=== PATIENT | male | born 1970 | race Caucasian/White ===

== ENCOUNTER 2023-11-05 17:17 | Emergency (ER) | payer OTHER ==
[2023-11-05 17:32] VITALS: RESP 16
[2023-11-05] MEDS ORDERED: Sodium Chloride 0.9% 1000 ML 1,000 ML IV STA (17:39)
[2023-11-05] MEDS ORDERED: Zofran 4 MG/2 ML VIAL IV ONE ×2 (17:39→18:41)
[2023-11-05] MEDS ORDERED: Zofran 4 MG/2 ML VIAL ONE ×2 (17:42→18:43)
[2023-11-05] MEDS ORDERED: Sodium Chloride 0.9% 1000 ML 1,000 ML ONE (17:42)
[2023-11-05 17:43] VITALS: TEMP 98.6
--- NOTE | 2023-11-05 17:57 | ERPHSYRPT ---
- History of Present Illness Time Seen by Provider: 11/05/23 17:54 Historian: patient, family Exam Limitations: no limitations Patient Subjective Stated Complaint: VOMITING Triage Nursing Assessment: PATIENT REPORTS TO ER WITH C/O VOMITTING SINCE . PATIENT ABLE TO AMBULATE PER SELF BACK TO ROOM WITH SISTER PRESENT. PATIENT STATES THAT HE IS NOT ABLE TO KEEP ANY FOOD, FLUIDS OR MEDICATIONS DOWN. PATIENT REPORTS THAT HE HAD A HERNIA REPAIRED IN HIS RIGHT GROIN REGION ON TUESDAY THIS WEEK AT [facility]. INCISION INTAKE TO RIGHT GROIN WITH DERMABOND, LARGE PURPLE BRUISING TO RIGHT GROIN AND UPPER LEG. PATIENT DENIES ABDOMINAL PAIN AT THIS TIME BUT IS TENDER TO RIGHT LOWER QUAD WITH PALPATION. PATIENT REPORTS LAST BOWEL MOVEMENT WAS YESTERDAY MORNING. PATIENT AFEBRILE WITH TEMP 98.6 ORAL BUT PATIENT REPORTS THAT HE HAS BEEN CHILLING. Physician History: blood in the stool or urine. Patient is 53-year-old male otherwise healthy recently underwent right inguinal hernia surgery 3 days ago. He was doing okay since today morning he started having a severe nausea vomiting and tenderness around the area of surgery in the right inguinal area. He denies any fever chills or blood in the stool or urine. He called the surgeon and he advised patient to be seen in the emergency room Timing/Duration: today Quality: cramping Abdominal Pain Onset Location: RLQ Pain Radiation: no radiation Severity of Pain-Max: moderate Severity of Pain-Current: moderate Associated Symptoms: nausea, vomiting Previous symptoms: no prior history Body Map: 1 - pain and tenderness Allergies/Adverse Reactions: Penicillins Allergy (Verified 11/05/23 17:25) Home Medications: Benzonatate 100 mg PO TID PRN 11/05/23 [History] Hydrocodone/Acetaminophen [Hydrocodone-Acetamin 7.5-325] 1 tab PO Q6H PRN 11/05/23 [History] Ondansetron ODT 4 MG [Zofran Odt 4 mg] 1 tab PO Q8H PRN 11/05/23 [History] Travel Risk - International Travel Have you traveled outside of the country in past 3 weeks: No - Coronavirus Screening Are you exhibiting any of the following symptoms?: No Close contact with a COVID-19 positive Pt in past 14-21 Days: No - Vaccine Status Have you recieved a Covid-19 vaccination: No - Review of Systems Constitutional: No Fever, No Chills Eyes: No Symptoms Ears, Nose, & Throat: No Symptoms Respiratory: No Cough, No Dyspnea Cardiac: No Chest Pain, No Edema, No Syncope Abdominal/Gastrointestinal: Abdominal Pain (RLQ), Nausea, Vomiting, No Diarrhea Genitourinary Symptoms: No Dysuria Musculoskeletal: No Back Pain, No Neck Pain Skin: No Rash Neurological: No Dizziness, No Focal Weakness, No Sensory Changes Psychological: No Symptoms Endocrine: No Symptoms All Other Systems: Reviewed and Negative - Past Medical History Pertinent Past Medical History: No Neurological History: No Pertinent History ENT History: No Pertinent History Cardiac History: No Pertinent History Respiratory History: No Pertinent History Endocrine Medical History: Hyperthyroidism Musculoskeletal History: No Pertinent History GI Medical History: Ulcer History: No Pertinent History Psycho-Social History: No Pertinent History Male Reproductive Disorders: No Pertinent History - Past Surgical History Past Surgical History: Yes Neuro Surgical History: No Pertinent History Cardiac: No Pertinent History Respiratory: No Pertinent History Gastrointestinal: Hernia Repair Genitourinary: No Pertinent History Musculoskeletal: No Pertinent History Male Surgical History: No Pertinent History Other Surgical History: R GROIN HERNIA REPAIR 11/01/23 - Social History Smoking Status: Never smoker Drug Use: none Patient Lives Alone: No - Nursing Vital Signs Nursing Vital Signs: Initial Vital Signs Pulse Rate 112 H 11/05/23 17:30 Respiratory Rate 16 11/05/23 17:30 Blood Pressure 142/112 11/05/23 17:30 O2 Sat by Pulse Oximetry 99 11/05/23 17:30 Pain Scale Pain Intensity 0 - Physical Exam General Appearance: no apparent distress, alert Eye Exam: PERRL/EOMI, eyes nml inspection Ears, Nose, Throat Exam: normal ENT inspection, pharynx normal, moist mucous membranes Neck Exam: normal inspection, non-tender, supple, full range of motion Respiratory Exam: normal breath sounds, lungs clear, No respiratory distress Cardiovascular Exam: regular rate/rhythm, normal heart sounds Gastrointestinal/Abdomen Exam: soft, normal bowel sounds, tenderness (RLQ), No mass Back Exam: normal inspection, normal range of motion, No CVA tenderness, No vertebral tenderness Extremity Exam: normal inspection, normal range of motion, pelvis stable Neurologic Exam: alert, oriented x 3, cooperative, normal mood/affect, nml cerebellar function, sensation nml, No motor deficits Skin Exam: normal color, warm, dry SpO2: 99 - Course Nursing assessment & vital signs reviewed: Yes - CT Exams Abdomen/Pelvis CT Interpretation: Tele-radiologist Report Ordered Tests: Active Orders 24 hr Category Date Time Status IV Insertion STAT Care 11/05/23 17:38 Active ABDOMEN AND PELVIS W/0 CONTRAS [CT] Stat Exams 11/05/23 17:39 Completed AMYLASE Stat Lab 11/05/23 18:15 Completed CBC W DIFF Stat Lab 11/05/23 18:15 Completed CMP Stat Lab 11/05/23 18:15 Completed LIPASE Stat Lab 11/05/23 18:15 Completed Lactic Acid Stat Lab 11/05/23 18:50 Completed Medication Summary Discontinued Medications Generic Name Dose Route Start Last Admin Trade Name Freq PRN Reason Stop Dose Admin Sodium Chloride 1,000 mls @ 999 mls/hr 11/05/23 17:39 11/05/23 18:47 Sodium Chloride 0.9% 1000 Ml IV 11/05/23 18:39 Infused .Q1H1M STA Infusion Sodium Chloride Confirm 11/05/23 17:42 Sodium Chloride 0.9% 1000 Ml Administered 11/05/23 17:43 Dose 1,000 mls @ ud .ROUTE .STK-MED ONE Ceftriaxone Sodium 1 gm in 100 mls @ 200 mls/hr 11/05/23 19:09 Rocephin 1 Gm / 100 Ml Nacl IV 11/05/23 19:38 STAT ONE Ondansetron HCl 4 mg 11/05/23 17:39 11/05/23 17:43 Ondansetron Hcl 4 Mg/2 Ml Vial IV 11/05/23 17:40 4 mg STAT ONE Administration Ondansetron HCl Confirm 11/05/23 17:42 Ondansetron Hcl 4 Mg/2 Ml Vial Administered 11/05/23 17:43 Dose 4 mg .ROUTE .STK-MED ONE Ondansetron HCl 4 mg 11/05/23 18:41 11/05/23 18:44 Ondansetron Hcl 4 Mg/2 Ml Vial IV 11/05/23 18:42 4 mg STAT ONE Administration Ondansetron HCl Confirm 11/05/23 18:43 Ondansetron Hcl 4 Mg/2 Ml Vial Administered 11/05/23 18:44 Dose 4 mg .ROUTE .STK-MED ONE Lab/Rad Data: Laboratory Result Diagrams 11/05/23 18:15 11/05/23 18:15 Laboratory Results 11/05/23 11/05/23 11/05/23 Range/Units 18:50 18:15 18:15 WBC 5.4 (4.0-10.5) x10^3/uL RBC 4.56 (4.1-5.6) x10^6/uL Hgb 13.5 (12.5-18.0) g/dL Hct 41.1 L (42-50) % MCV 90.1 (78-100) fL MCH 29.6 (26-32) pg MCHC 32.8 (32-36) g/dL RDW 12.3 (11.5-14.0) % Plt Count 273 (150-450) x10^3/uL MPV 10.3 (7.5-11.0) fL Gran % 74.2 H (36.0-66.0) % Immature Gran % (Auto) 0.2 (0.00-0.4) % Nucleat RBC Rel Count 0.0 (0.00-0.1) % Eos # (Auto) 0 (0-0.5) x10^3/uL Immature Gran # (Auto) 0.01 (0.00-0.03) x10^3u/L Absolute Lymphs (auto) 0.91 L (1.0-4.6) x10^3/uL Absolute Monos (auto) 0.46 (0.0-1.3) x10^3/uL Absolute Nucleated RBC 0.00 (0.00-0.01) x10^3u/L Lymphocytes % 16.9 L (24.0-44.0) % Monocytes % 8.5 (0.0-12.0) % Eosinophils % 0.0 (0.00-5.0) % Basophils % 0.2 (0.0-0.4) % Absolute Granulocytes 4.01 (1.4-6.9) x10^3/uL Basophils # 0.01 (0-0.4) x10^3/uL Sodium 136 L (137-145) mmol/L Potassium 3.9 (3.5-5.1) mmol/L Chloride 101 (98-107) mmol/L Carbon Dioxide 27 (22-30) mmol/L Anion Gap 11.9 (5-15) MEQ/L BUN 16 (9-20) mg/dL Creatinine 0.63 L (0.66-1.25) mg/dL Estimated GFR 115.2 ML/MIN Glucose 114 H (74-106) mg/dL Lactic Acid 1.7 (0.4-2.0) Calcium 9.0 (8.4-10.2) mg/dL Total Bilirubin 1.10 (0.2-1.3) mg/dL AST 31 (17-59) U/L ALT 47 (0-50) U/L Alkaline Phosphatase 89 (38-126) U/L Serum Total Protein 6.9 (6.3-8.2) g/dL Albumin 4.1 (3.5-5.0) g/dL Amylase 102 (30-110) U/L Lipase 39 (23-300) U/L 0007 CT/ABDOMEN AND PELVIS W/0 CONTRAS CLINICAL HISTORY: right lower quadrant abdominal pain TECHNIQUE: A CT scan of the abdomen and pelvis was performed without IV contrast. Coronal and sagittal reconstructive images were also obtained. CTDI: 2.57 mGy, DLP: 134.37 mGy.cm COMPARISON: None FINDINGS: Abdomen: The liver is normal in size measuring 12.2 cm craniocaudally. No diffuse or focal parenchymal abnormality. The portal vein, intrahepatic biliary radicals, and the bile ducts are normal. The spleen is normal in size with multiple tiny scattered calcifications within. The pancreas and adrenal glands are unremarkable. The kidneys are normal in size and shape. No cysts, mass, calculi, or hydronephrosis. The gallbladder is distended and has a round hypodensity with a subtle hyperdense rim measuring about 1.2 cm, likely gallbladder stone. There is no evidence of wall thickening/ pericholecystic collection. The ascending colon, the transverse colon, the descending colon, visualized small bowel loops are unremarkable. The appendix is normal. There is no evidence of significant enlargement of the mesenteric or retroperitoneal lymph nodes. Mild atherosclerotic aorta and some of its branches. Pelvis: The right spermatic cord is distended with hyperdense collection noted within. It measures up to 2.2 cm thick. A small pocket of gas is noted at the right inguinal region and the course of the right spermatic cord. The urinary bladder is unremarkable. The prostate gland is normal. The pelvic vasculature is unremarkable. No evidence of pelvic lymphadenopathy. IMPRESSION: 1. A distended right spermatic cord with hyperdense collection within, measuring up to 2.2 cm thick. The primary consideration is hematoma. The air within its course also raises the possibility of infection. Mass lesions cannot be completely ruled out. Ultrasound correlation is suggested. 2. Gallbladder stone 3. Splenic calcifications 4. No appendicitis 5. Suggest testicular ultrasound. [facility] ER was called at [phone] at 05:52 PM [employer]IC [employer] MECHANIC, 11/05/2023 and results were verbally communicated to Ishmael Rayo - Progress Progress: unchanged, pain not gone completely Progress Note: 11/05/23 19:38 I talked to the covering surgeon in [place]. I discussed the CAT scan report with him. His opinion is that is probably not because of the any surgical issue. He advised patient to be seen on Tuesday by his surgeon. Patient is feeling much better nausea and vomiting has resolved but having some headache. IV Rocephin given. Patient caregiver who is his sister instructed about what to do if nausea and vomiting persist. She is also advised to bring him back if symptoms get worse. She is advised to call surgeon on Tuesday. Counseled pt/family regarding: lab results, diagnosis, need for follow-up, rad results Medical Desision Making - Independent Historian Additional History obtained from: Family - Discussion of managment Care discussed with:: specialist (Surgeon subcontract manager) Reviewed:: Test results Agreed on:: Treatment plan, need for follow-up Will see patient: In office - Diagnostic Testing Diagnostic test were ordered, analyzed, and reviewed by me: Yes Radiological Interpretation: Reviewed by me - Risk of complications The pt has a mod risk of morbidity or mortality based on: Need for minor surgical intervention in patient with know risk factors - Departure Departure Disposition: Home Clinical Impression: Hematoma of right inguinal region Nausea and vomiting Qualifiers: Vomiting type: unspecified Qualified Code(s): R11.2 - Nausea with vomiting, unspecified Headache Qualifiers: Headache type: unspecified Headache chronicity pattern: acute headache Intractability: not intractable Qualified Code(s): R51.9 - Headache, unspecified Condition: Stable Critical Care Time: No Referrals: DOCTOR,NO FAMILY [Primary Care Provider] - Follow up/PCP as directed (Follow up with surgeon in 3 days) Additional Instructions: Discharge/Care Plan CHAZ LAWSON was seen on 11/05/23 in the Emergency Room. The patient was counseled regarding Diagnosis,Lab results, Imaging studies, need for follow up and when to return to the Emergency Room. Prescriptions given: Discharge Note I have spoken with the patient and/or caregivers. I have explained the patient's condition, diagnosis and treatment plan based on the information available to me at this time. I have answered the patient's and/or caregiver's questions and addressed any concerns. The patient and/or caregivers have as good understanding of the patient's diagnosis, condition and treatment plan as can be expected at this point. The vital signs have been stable. The patient's condition is stable and appropriate for discharge from the emergency department. The patient will pursue further outpatient evaluation with the primary care physician or other designated or consulting physician as outlined in the discharge instructions. The patient and/or caregivers are agreeable to this plan of care and follow-up instructions have been explained in detail. The patient and/or caregivers have received these instruction. The patient/and or caregivers are aware that any significant change in condition or worsening of symptoms should prompt an immediate return to this or the closest emergency department or call 911. CHAZ LAWSON was seen on 11/05/23 n the Emergency Room. At that time you were treated for an emergent condition, during your visit Laboratory, Radiology and/or other procedures may have been ordered. It is very important that you follow-up with your Primary Care Physician NO FAMILY DOCTOR within the next 24- 48 hours to review your Emergency Room visit and the final results of testing that was ordered. Some test results such as Urine Cultures, Blood Cultures, and other cultures if ordered will not be finalized for 24-48 hours. If you do not have a Primary Care Provider please call the medical records department at [phone] ext [phone] to obtain a copy of your results or you may sign into our patient portal to obtain these results by visiting us @ [email or web address] and completing the following steps: 1. Click on the Patient Portal link 2. Click the Patient Self Enrollment Link to complete the enrollment form and entering your 3. Once the enrollment form is completed you will receive an email with a temporary ID and password at the email address you provided. 4. Next choose a user name and password. Your user name must be at least 4 characters long and your password must be at least 4 characters long. 5. Choose a security question from the list and provide your answer to the question. If you already have signed into the Health Portal you may access your Health Care Information 02/05 by the following steps: 1. Login to our website @ [email or web address] 2. Enter your original user name and password. FAQS The [facility] Health Portal is an online tool that contains your Lab Results, Radiology Reports, Visit History, Discharge Instructions and Health Summary Lab and Radiology Results will not be available for 72 hours on the portal. The Portal is a secure site, passwords are encryted and URLs are re-written so they cannot be copied and pasted. You and authorized family members are the only ones who can access your Portal. Also there is a timeout feature that protects your information if you leave the Portal page open. If you have technical difficulty please use the Contact Us link on the page this will allow you to submit any questions you have regarding the Portal or you may contact the Medical Record Department at [phone]. Prescriptions: Smz/Tmp Ds Tablet [Bactrim Ds Tablet] 1 udtab PO BID #20 tablet Ondansetron ODT 4 MG [Zofran Odt 4 mg] 4 mg PO Q6H PRN PRN #10 tablet PRN Reason: Vomiting
[2023-11-05 18:27] LABS: Absolute Neutrophil Ct (ANC) 4.01 x10^3/uL (1.4-6.9); BASOPHIL % 0.2 % (0.0-0.4); Basophil (Absolute #) 0.01 x10^3/uL (0-0.4); Eosinophil (Absolute #) 0 x10^3/uL (0-0.5); Hematocrit 41.1 % (42-50); Hemoglobin 13.5 g/dL (12.5-18.0); IMMATURE GRAN # 0.01 x10^3u/L (0.00-0.03); IMMATURE GRAN % 0.2 % (0.00-0.4); Lymphocyte (Absolute #) 0.91 x10^3/uL (1.0-4.6); Lymphocytes % 16.9 % (24.0-44.0); Mean Cell Volume 90.1 fL (78-100); Mean Corpuscular Hemoglobin 29.6 pg (26-32); Mean Corpuscular Hgb Concent. 32.8 g/dL (32-36); Mean Platelet Volume 10.3 fL (7.5-11.0); Monocyte (Absolute #) 0.46 x10^3/uL (0.0-1.3); Monocytes % 8.5 % (0.0-12.0); Neutrophil % 74.2 % (36.0-66.0); Platelet Count 273 x10^3/uL (150-450); Red Blood Count 4.56 x10^6/uL (4.1-5.6); Red Cell Distribution Width 12.3 % (11.5-14.0); White Blood Count 5.4 x10^3/uL (4.0-10.5)
--- NOTE | 2023-11-05 19:00 | XRAY ---
CLINICAL HISTORY: right lower quadrant abdominal pain TECHNIQUE: A CT scan of the abdomen and pelvis was performed without IV contrast. Coronal and sagittal reconstructive images were also obtained. CTDI: 2.57 mGy, DLP: 134.37 mGy.cm COMPARISON: None FINDINGS: Abdomen: The liver is normal in size measuring 12.2 cm craniocaudally. No diffuse or focal parenchymal abnormality. The portal vein, intrahepatic biliary radicals, and the bile ducts are normal. The spleen is normal in size with multiple tiny scattered calcifications within. The pancreas and adrenal glands are unremarkable. The kidneys are normal in size and shape. No cysts, mass, calculi, or hydronephrosis. The gallbladder is distended and has a round hypodensity with a subtle hyperdense rim measuring about 1.2 cm, likely gallbladder stone. There is no evidence of wall thickening/ pericholecystic collection. The ascending colon, the transverse colon, the descending colon, visualized small bowel loops are unremarkable. The appendix is normal. There is no evidence of significant enlargement of the mesenteric or retroperitoneal lymph nodes. Mild atherosclerotic aorta and some of its branches. Pelvis: The right spermatic cord is distended with hyperdense collection noted within. It measures up to 2.2 cm thick. A small pocket of gas is noted at the right inguinal region and the course of the right spermatic cord. The urinary bladder is unremarkable. The prostate gland is normal. The pelvic vasculature is unremarkable. No evidence of pelvic lymphadenopathy. IMPRESSION: 1. A distended right spermatic cord with hyperdense collection within, measuring up to 2.2 cm thick. The primary consideration is hematoma. The air within its course also raises the possibility of infection. Mass lesions cannot be completely ruled out. Ultrasound correlation is suggested. 2. Gallbladder stone 3. Splenic calcifications 4. No appendicitis 5. Suggest testicular ultrasound. [facility] ER was called at [phone] at 05:52 PM [employer]AMP[employer]IEWS INTERN, 11/05/2023 and results were verbally communicated to Ishmael Rayo Electronically Signed by: Kamille Avelar MD. (11/05/2023 18:55:38 EST)
[2023-11-05] MEDS ORDERED: ROCEPHIN 1 GM / 100 ML NaCl 1 GM/100 ML IVPB IV ONE ×2 (19:09→19:38)
[2023-11-05 19:16] LABS: ALBUMIN 4.1 g/dL (3.5-5.0); ANION GAP 11.9 MEQ/L (5-15); BILIRUBIN,TOTAL 1.1 mg/dL (0.2-1.3); Creatinine 1 0.63 mg/dL (0.66-1.25); EST GLOMERULAR FILTRATION RATE 115.2 ML/MIN; Potassium 3.9 mmol/L (3.5-5.1); Total Protein 6.9 g/dL (6.3-8.2)
[2023-11-05] MEDS ORDERED: ZOFRAN ODT 4 MG PO ONE (19:44)
[2023-11-05] MEDS ORDERED: ZOFRAN ODT 4 MG ONE (19:46)
[2023-11-05] MEDS ORDERED: TORAdol 30 mg Injection IM ONE (19:46)
[2023-11-05] MEDS ORDERED: TORAdol 30 mg Injection IV ONE (19:50)
[2023-11-05] MEDS ORDERED: Reglan 10 MG/2 ML IV ONE (19:50)
[2023-11-05] MEDS ORDERED: Reglan 10 MG/2 ML ONE (19:52)
[2023-11-05] MEDS ORDERED: TORAdol 30 mg Injection ONE (19:52)
[2023-11-05 20:10] VITALS: BP 138/96; PULSE 87; O2SAT 100
== END 2023-11-05 20:26 | disposition home or self-care (01) ==
LOC: ED 17:17
DX: L76.32 Postprocedural hematoma of skin and subcutaneous tissue following other procedure (principal); R11.2 Nausea with vomiting, unspecified; R51.9 Headache, unspecified; Z79.891 Long term (current) use of opiate analgesic; Z79.899 Other long term (current) drug therapy; Z28.310 Unvaccinated for COVID-19
CPT/HCPCS: 36415; 74176; 80053; 82150; 83605; 83690; 85025; 96365; 96374; 96375; 96376; 99284; J0696; J1885; J2405; Q0162